=== PATIENT | female | born 1960 | race Caucasian/White ===

== ENCOUNTER 2016-05-15 10:08 | Outpatient (CLI) | payer OTHER ==
--- NOTE | 2016-05-15 11:21 | DIAGNOSTIC IMAGING REPORT ---
PROCEDURE: US VENOUS - LEFT EXT INDICATION: SWELLING BEHIND LEFT KNEE TECHNIQUE: Duplex sonography of the deep venous system in the left lower extremity was performed. Compression and augmentation techniques were used. COMPARISON: None FINDINGS: Each interrogated segment of deep vein from the common femoral vein into the calf veins demonstrates normal compressibility, augmentation and/or color Doppler flow without filling defect. A superficial short saphenous venous branch is incompressible, demonstrates expansile hypoechoic material and no flow. The thrombosed vein measures at least 11 mm in diameter. The proximal end of the thrombus is at least 5 cm from the saphenopopliteal junction. IMPRESSION: 1. No deep venous thrombosis in the left lower extremity. 2. Superficial thrombophlebitis in the left popliteal fossa. No evidence of recanalization.
== END 2016-05-15 23:00 ==
LOC: US SRH 10:08
DX: I80.02 Phlebitis and thrombophlebitis of superficial vessels of left lower extremity (principal)